=== PATIENT | female | born 1950 | race Caucasian/White ===

== ENCOUNTER 2023-09-25 14:24 | Outpatient (AMB) | payer MEDICARE, SELFPAY ==
[2023-09-25 14:50] VITALS: PULSE 87; TEMP 36.7; O2SAT 97; BMI 38.6
--- NOTE | 2023-09-25 14:50 | MHC.OFFVIS ---
Intake Vital Signs 09/25/23 14:50 Height 5 ft 3 in Weight 218 lb BMI 38.6 Pulse 87 Temp 98.1 F Temp Source Oral Pulse Oximetry (%) 97 Intake Visit Reasons: Ref [facility] Allergies atorvastatin [From Lipitor] Allergy (Unknown, Verified 09/25/23 14:57) Unknown chlorzoxazone [From Parafon Forte] Allergy (Unknown, Verified 09/25/23 14:57) ukn grass pollen Allergy (Unknown, Verified 09/25/23 14:57) Unknown house dust Allergy (Unknown, Verified 09/25/23 14:57) Unknown mold Allergy (Unknown, Verified 09/25/23 14:57) Unknown nut - unspecified Allergy (Unknown, Verified 09/25/23 14:57) ukn tree nut Allergy (Unknown, Verified 09/25/23 14:57) ukn fruit Allergy (Unknown, Uncoded 09/25/23 14:57) Unknown HPI Ref [facility] HPI Details She presents for frequent urinary tract infections. She says over last two months she has been on three antibiotics. She says Cipro works but Bactrim and Macrobid do not for urinary infections She did get fosfomycin twice about five to six weeks ago with no improvement. Her symptoms are burning on uination and occasional slight hematuria. She was told she may have interstitial cystitis at one time. She has had two right sided kidney stones 20 years ago obliterated. She has been using intravaginal Valium with estrogen for symptoms. She has no flank pain. Right now she has complaint of foamy urine with increased protein patient believes is due to kidney disease. SHe also had gastric bypass in past. She had ilya krusei in urine and was reported to be allergic to Diflucan but doenst think so and received 14 day script and she is tolerating it on day 1. She has no u/s with fungal balls or other changes and has no fever. [facility] Medical History (Updated 10/04/23 @ 16:33 by Lacy Espana MD) Candidal urinary tract infection Recurrent UTI Review of Systems Const All systems reviewed & are unremarkable except as noted in HPI and below Physical Exam Vital Signs: Last Vital Signs Temp 98.1 F 09/25/23 14:50 Pulse 87 09/25/23 14:50 Pulse Ox 97 09/25/23 14:50 BMI result Body Mass Index 38.6 Const General: cooperative Orientation/consciousness: patient oriented x3 HEENT Head: Yes normal to inspection Mouth: Normal oral and palatal mucosa present Eyes General: appearance normal, both eyes and all related structures Pupils: Equal, round and reactive pupils present Resp Effort & Inspection: normal respiratory effort Cardio Rate: regular rate Rhythm: regular rhythm GI Palpation (GI): Soft to palpation and nontender General: Yes no CVA tenderness Back/Spine/Pelvis Back: no CVA tenderness Skin General skin exam: no rashes or lesions noted Neuro General: patient oriented x3 Cranial nerves: Yes CN's II-XII intact bilaterally and Yes Equal, round and reactive pupils present Extrem General: Yes normal to inspection Psych Appearance: grossly normal Assessment & Plan Assessment & Plan (1) Recurrent UTI: Comment: I do not think ilya krusei is responsible for urinary tract symptoms She has been tolerating Diflucan today Code(s): N39.0 - Urinary tract infection, site not specified Plan: No further antifungals after 14 day. No antibiotic prophylaxis. Acidication urine if able. Followup Urology (2) Candidal urinary tract infection: Code(s): B37.49 - Other urogenital candidiasis Plan: na Coding Level of Care Code New Pt Level 3 (21415) Diagnoses Recurrent UTI N39.0 Candidal urinary tract infection B37.49
== END 2023-09-25 15:23 | disposition home or self-care (01) ==
PROVIDERS: PCP Student in an Organized Health Care Education/Training Program; Visit Provider Internal Medicine
DX: N39.0 Urinary tract infection, site not specified (principal); B37.49 Other urogenital candidiasis
CPT/HCPCS: 99203

== ENCOUNTER → 2023-09-25 14:24 | Outpatient (BNVA) | payer MEDICARE, SELFPAY | PROVIDERS: PCP Student in an Organized Health Care Education/Training Program; Visit Provider Internal Medicine | DX: N39.0 Urinary tract infection, site not specified (principal); Z87.442 Personal history of urinary calculi | CPT/HCPCS: 99202 ==